=== PATIENT | female | born 1985 | race Caucasian/White ===

== ENCOUNTER 2016-11-18 21:47 | Emergency (ER) | payer OTHER ==
[~2016-11-18] VITALS: Ht 165.1 cm; Wt 59.0 kg
[~2016-11-18 21:47] MED LIST: Abilify PO; BACLOFEN10 MG PO; BACLOFEN20 MG PO; BENADRYL25 MG PO; COLACE100 MG PO; DILAUDID2 MG PO; DURAGESIC100 MCG TD; ELAVIL25 MG PO; FENTANYL1 EAC2 TD; FIORICET,ESG1 TABLET PO; FLEXERIL10 MG PO; FLONASE16 G1 BOTH NARES; FLUTICASONE PRO60 ML TP; FUROSEMIDE20 MG PO; GABAPENTIN400 MG PO; GLUCAGON1 MG IM; HUMALOG100 UNITS/; IBUPROFEN400 MG PO; LANTUS 10100 UNITS/ SC; LANTUS 3 M100 UNITS1 SC; LANTUS100 UNIT/1 SQ; LASIX20 MG PO; LASIX40 MG PO; LIORESAL10 MG PO; LORATADINE10 M2 PO; MELATIN3 MG PO; MOTRIN800 MG PO; MUCUS RELIEF400 MG PO; NOVOLIN N100 UNIT/2 SQ; NOVOLOG PE100 UNITS/ SC; NOVOLOG100 UNIT/1 SQ; NOVOLOG100 UNIT/2 SQ; OXYCODONE HCL20 M1 PO; OXYCONTIN20 MG PO; PRAVASTATIN SOD80 MG PO; Percocet 5/325,Endoc PO; SENNA8.6 MG PO; SIMVASTATIN20 MG PO; SIMVASTATIN40 MG PO; SIMVASTATIN5 MG PO; SUCRETS PO; TIZANIDINE HCL2 MG PO; TRAZODONE HCL100 MG PO; TYLENOL REGULA325 MG PO; Trileptal PO; ULTRAM50 MG PO; Vibramycin, Doryx PO; Xanax PO; ZANAFLEX2 M1 PO; ZOLOFT100 MG PO
[2016-11-19] MEDS ORDERED: PERCOCET 5/31 TABLET PO (00:41)
[2016-11-19] MEDS ORDERED: NAPROSYN500 MG PO (00:41)
[2016-11-19 00:50] VITALS: BP 122/81
== END 2016-11-19 00:51 | disposition home or self-care (01) ==
LOC: EXP 21:47 → EME 21:47 → EXP 11-19 00:51
DX: S90.02XA Contusion of left ankle, initial encounter (principal); W51.XXXA Accidental striking against or bumped into by another person, initial encounter; F17.200 Nicotine dependence, unspecified, uncomplicated
CPT/HCPCS: 73590; 73610; 99281; 99283

== ENCOUNTER 2016-12-18 13:48 | Emergency (ER) | payer OTHER ==
[~2016-12-18] VITALS: Ht 165.1 cm; Wt 52.5 kg
[~2016-12-18 13:48] MED LIST changes: +NAPROSYN500 MG PO; +PERCOCET 5/31 TABLET PO
[2016-12-18 13:54] VITALS: BP 107/93
[2016-12-18] MEDS ORDERED: NOVOLOG PE100 UNITS/ SC (14:01)
[2016-12-18] MEDS ORDERED: TIZANIDINE HCL2 M1 PO (14:02)
[2016-12-18] MEDS ORDERED: TRAMADOL HCL50 MG PO (16:19)
== END 2016-12-18 16:47 | disposition home or self-care (01) ==
LOC: EME 13:48
DX: S93.402A Sprain of unspecified ligament of left ankle, initial encounter (principal); M25.462 Effusion, left knee; I69.352 Hemiplegia and hemiparesis following cerebral infarction affecting left dominant side; W19.XXXA Unspecified fall, initial encounter; Z71.6 Tobacco abuse counseling; E11.9 Type 2 diabetes mellitus without complications; F17.200 Nicotine dependence, unspecified, uncomplicated; Z79.4 Long term (current) use of insulin
CPT/HCPCS: 73564; 73610; 99281; 99284

== ENCOUNTER 2016-12-25 12:30 | Inpatient (IN) | payer OTHER ==
[2016-12-25] VITALS (7 sets, daily range): BP systolic 110–136; BP diastolic 60–77
[~2016-12-25] VITALS: Ht 165.1 cm; Wt 52.9 kg
[~2016-12-25 12:30] MED LIST changes: +TIZANIDINE HCL2 M1 PO; +TRAMADOL HCL50 MG PO
[2016-12-25 13:42] LABS: POINT-OF-CARE METER ID UU13113702
[2016-12-25 13:56] LABS: EOSINOPHIL (%) 0 % (0-5); HEMATOCRIT 52.6 % (36.0-46.0); IMMATURE GRANULOCYTE (%) 0.3 % (0.0-0.7); IMMATURE GRANULOCYTE COUNT 0.2 K/uL; LYMPHOCYTE COUNT 0.6 K/uL (1.0-2.8); MCHC 33.1 G/DL (30.0-36.0); MCV 87.7 FL (83-99); MEAN PLAT.VOLUME 11.4 uM^3 (9.5-12.4); MONOCYTE (%) 9.3 % (3-12); MONOCYTE COUNT 0.6 K/uL (0-0.8); NEUTROPHIL (%) 80.5 % (45-76); NEUTROPHIL COUNT 4.8 K/uL (1.8-6.4); PLATELET COUNT 117 K/uL (156-360); RBC DIS.WIDTH-CV 14.2 % (11.8-14.6); RBC DIS.WIDTH-SD 45.8 % (39-53); WHITE BLOOD COUNT 5.9 K/uL (4.1-10.2)
[2016-12-25 13:57] LABS: CREATININE 0.9 mg/dL (0.6-1.3); POTASSIUM 5.2 mEq/L (3.7-5.4)
[2016-12-25 13:59] LABS: CARBON DIOXIDE (BICARBONATE) 9.1 MEQ/L (20-31)
[2016-12-25 14:08] LABS: CHLORIDE 95 mEq/L (99-109); POTASSIUM 5.4 mEq/L (3.7-5.4); SODIUM 133 mEq/L (136-147)
[2016-12-25 14:11] LABS: ANION GAP 30 MEQ/L (2-14)
[2016-12-25 14:12] LABS: GLUCOSE 470 mg/dL (70-99); TOTAL BILIRUBIN 0.4 mg/dL (0.0-1.0)
[2016-12-25 14:13] LABS: ALKALINE PHOSPHATASE 114 IU/L (3-129)
[2016-12-25 14:14] LABS: GFR ESTIMATE (CALCULATED) 35 mL/min/
[2016-12-25 14:15] LABS: DIRECT BILIRUBIN 0.2 mg/dL (0.0-0.3); UREA NITROGEN (BUN) 17 mg/dL (9-23)
[2016-12-25 14:17] LABS: LIPASE 8 U/L (1.0-51.0)
[2016-12-25 14:21] LABS: TROP-I INTERPRETATION NEGATIVE; TROPONIN-I < 0.01 ng/mL (0.0-0.30)
[2016-12-25 15:39] LABS: POINT-OF-CARE METER ID UU13113702
[2016-12-25 16:24] LABS: ADD MIUA? YES; BILIRUBIN NEGATIVE; BLOOD SMALL; COLOR STRAW ((YELLOW)); GLUCOSE (STRIP) >=500; KETONES 80; LEUKOCYTES NEGATIVE; NITRITE NEGATIVE; PROTEIN (STRIP) 30; SPECIFIC GRAVITY 1.014 (1.000-1.030); UROBILINOGEN 0.2 MG/DL (0.2-1.0)
[2016-12-25 16:30] LABS: POINT-OF-CARE METER ID UU13113702
[2016-12-25 16:33] LABS: BACTERIA NONE SEEN /HPF; EPITHELIAL CELLS RARE /HPF; HYALINE CASTS 0-5 /LPF; MUCUS NONE SEEN /LPF; RED BLOOD CELLS 0-5 /HPF (0-5); UCUL ADDED? NO; WHITE BLOOD CELLS 0-5 /HPF (0-5)
[2016-12-25 16:34] LABS: AMPHETAMINE NEGATIVE (500 ng/mL); BENZODIAZEPINES NEGATIVE (150 ng/mL); COCAINE NEGATIVE (150 ng/mL); METHAMPHETAMINE NEGATIVE (500 ng/mL); OPIATES (MORPHINE) PRESUMPTIVE POSITIVE (100 ng/mL); PHENCYCLIDINE NEGATIVE (25 ng/mL); THC CANNABINOIDS NEGATIVE (50 ng/mL); TRICYCLIC ANTIDEPRESSANTS NEGATIVE (300 ng/mL)
[2016-12-25 16:35] LABS: BARBITURATES NEGATIVE (200 ng/mL); INTERNAL CONTROLS VALID? YES; METHADONE PRESUMPTIVE POSITIVE (200 ng/mL); OXYCODONE PRESUMPTIVE POSITIVE (100 ng/mL); PROPOXYPHENE NEGATIVE (300 ng/mL)
[2016-12-25 16:36] LABS: ADD MEDTOX COMMENT Y
[2016-12-25 17:51] LABS: POINT-OF-CARE METER ID UU13113748
[2016-12-25] MEDS ORDERED: ELAVIL25 MG PO (18:08)
[2016-12-25] MEDS ORDERED: BACLOFEN20 MG PO (18:09)
[2016-12-25] MEDS ORDERED: BACLOFEN10 MG PO (18:09)
[2016-12-25] MEDS ORDERED: DILAUDID2 MG PO (18:10)
[2016-12-25] MEDS ORDERED: DURAGESIC100 MCG TD (18:10)
[2016-12-25] MEDS ORDERED: LANTUS 3 M100 UNITS1 SC (18:11)
[2016-12-25] MEDS ORDERED: LASIX20 MG PO (18:12)
[2016-12-25] MEDS ORDERED: LASIX40 MG PO (18:12)
[2016-12-25] MEDS ORDERED: LANTUS 3 M100 UNITS1 SQ (18:12)
[2016-12-25] MEDS ORDERED: MELATIN3 MG PO (18:13)
[2016-12-25] MEDS ORDERED: NOVOLOG PE100 UNITS/ SC (18:14)
[2016-12-25] MEDS ORDERED: OXYCODONE HCL20 M1 PO (18:14)
[2016-12-25] MEDS ORDERED: SIMVASTATIN40 MG PO (18:15)
[2016-12-25] MEDS ORDERED: TIZANIDINE HCL2 M1 PO ×2 (18:15)
[2016-12-25 18:29] LABS: INFLUENZA A VIRAL ANTIGEN NEGATIVE; INFLUENZA B VIRAL ANTIGEN POSITIVE
[2016-12-25 18:52] LABS: POINT-OF-CARE METER ID UU13113748
[2016-12-25 19:08] LABS: METH RESISTANT S AUREUS PCR NEGATIVE (NEGATIVE)
[2016-12-25 19:24] LABS: PROBE CHECK PASS; SPECIMEN PROCESSING CONTROL PASS
[2016-12-25 19:36] LABS: POINT-OF-CARE METER ID UU13113748
[2016-12-25 19:39] LABS: ANION GAP 20 MEQ/L (2-14); CHLORIDE 109 MEQ/L (99-109); GFR ESTIMATE (CALCULATED) > 59 mL/min/; GLUCOSE 212 mg/dL (70-99); POTASSIUM 4.4 MEQ/L (3.7-5.4); SAMPLE HEMOLYSIS CHECK 0; SAMPLE ICTERIC CHECK 0; SAMPLE LIPEMIA CHECK 0; SODIUM 138 MEQ/L (136-147); UREA NITROGEN (BUN) 15 mg/dL (9-23)
[2016-12-25 20:55] LABS: POINT-OF-CARE METER ID UU13113748
[2016-12-25 21:43] LABS: POINT-OF-CARE METER ID UU13113748
[2016-12-25 22:59] LABS: POINT-OF-CARE METER ID UU13113748
[2016-12-26] VITALS (18 sets, daily range): BP systolic 106–142; BP diastolic 51–84
[2016-12-26 00:04] LABS: POINT-OF-CARE METER ID UU13113748
[2016-12-26 01:29] LABS: POINT-OF-CARE METER ID UU13113748
[2016-12-26 02:22] LABS: POINT-OF-CARE METER ID UU13113748
[2016-12-26 03:04] LABS: POINT-OF-CARE METER ID UU13113748
[2016-12-26 04:21] LABS: POINT-OF-CARE METER ID UU13113748
[2016-12-26 05:06] LABS: POINT-OF-CARE METER ID UU13113748
[2016-12-26 06:12] LABS: POINT-OF-CARE METER ID UU13113748
[2016-12-26 07:16] LABS: POINT-OF-CARE METER ID UU13113731
[2016-12-26 07:20] LABS: Estimated Average Glucose 177 mg/dL (70-123); HEMOGLOBIN A1c (GLYCOHEMOGLOB) 7.8 % HGB (Below 5.7)
[2016-12-26 08:21] LABS: POINT-OF-CARE METER ID UU13113731
[2016-12-26 09:11] LABS: ANION GAP 10 MEQ/L (2-14); CHLORIDE 111 MEQ/L (99-109); POTASSIUM 3.7 MEQ/L (3.7-5.4); SAMPLE HEMOLYSIS CHECK 0; SAMPLE ICTERIC CHECK 0; SAMPLE LIPEMIA CHECK 0; SODIUM 136 MEQ/L (136-147)
[2016-12-26 09:16] LABS: GFR ESTIMATE (CALCULATED) > 59 mL/min/; GLUCOSE 148 mg/dL (70-99); UREA NITROGEN (BUN) 14 mg/dL (9-23)
[2016-12-26 09:17] LABS: POINT-OF-CARE METER ID UU13113731
[2016-12-26 10:54] LABS: POINT-OF-CARE METER ID UU13113731
[2016-12-26 12:15] LABS: POINT-OF-CARE METER ID UU13113731
[2016-12-26 13:01] LABS: POINT-OF-CARE METER ID UU13113731
[2016-12-26 13:54] LABS: POINT-OF-CARE METER ID UU13113731
[2016-12-26 14:27] LABS: ANION GAP 8 MEQ/L (2-14); CHLORIDE 112 MEQ/L (99-109); GFR ESTIMATE (CALCULATED) > 59 mL/min/; GLUCOSE 169 mg/dL (70-99); POTASSIUM 3.8 MEQ/L (3.7-5.4); SAMPLE HEMOLYSIS CHECK 0; SAMPLE ICTERIC CHECK 0; SAMPLE LIPEMIA CHECK 0; SODIUM 136 MEQ/L (136-147); UREA NITROGEN (BUN) 11 mg/dL (9-23)
[2016-12-26 16:58] LABS: POINT-OF-CARE METER ID UU13113731
[2016-12-27 03:00] VITALS: BP 109/63
[2016-12-27 10:05] LABS: HEMATOCRIT 41.6 % (36.0-46.0); MCHC 34.1 G/DL (30.0-36.0); MCV 87.8 FL (83-99); MEAN PLAT.VOLUME 10.5 uM^3 (9.5-12.4); PLATELET COUNT 89 K/uL (156-360); RBC DIS.WIDTH-CV 14.4 % (11.8-14.6); RBC DIS.WIDTH-SD 46.3 % (39-53)
[2016-12-27 10:11] LABS: RED BLOOD COUNT 4.74 M/uL (3.80-5.20)
[2016-12-27 10:37] LABS: ANION GAP 9 MEQ/L (2-14); CHLORIDE 114 MEQ/L (99-109); GFR ESTIMATE (CALCULATED) > 59 mL/min/; POTASSIUM 3.6 MEQ/L (3.7-5.4); SAMPLE HEMOLYSIS CHECK 0; SAMPLE ICTERIC CHECK 0; SAMPLE LIPEMIA CHECK 0; SODIUM 141 MEQ/L (136-147); UREA NITROGEN (BUN) 9 mg/dL (9-23)
[2016-12-27 10:39] LABS: GLUCOSE 42 mg/dL (70-99)
[2016-12-27 15:28] VITALS: BP 125/85
[2016-12-28] VITALS (7 sets, daily range): BP systolic 100–123; BP diastolic 62–77
[2016-12-28 10:05] LABS: HEMATOCRIT 40.7 % (36.0-46.0); MCH 30.3 PG (29.0-34.0); MCHC 34.2 G/DL (30.0-36.0); MCV 88.9 FL (83-99); MEAN PLAT.VOLUME 11.7 uM^3 (9.5-12.4); PLATELET COUNT 93 K/uL (156-360); RBC DIS.WIDTH-CV 14.4 % (11.8-14.6); RBC DIS.WIDTH-SD 46.9 % (39-53); RED BLOOD COUNT 4.58 M/uL (3.80-5.20)
[2016-12-28 10:24] LABS: WHITE BLOOD COUNT 3.7 K/uL (4.1-10.2)
[2016-12-28 10:39] LABS: ANION GAP 6 MEQ/L (2-14); CHLORIDE 112 MEQ/L (99-109); SAMPLE HEMOLYSIS CHECK 1; SAMPLE ICTERIC CHECK 0; SAMPLE LIPEMIA CHECK 0; SODIUM 142 MEQ/L (136-147)
[2016-12-28 10:40] LABS: POTASSIUM 4.5 MEQ/L (3.7-5.4)
[2016-12-28 10:45] LABS: GFR ESTIMATE (CALCULATED) > 59 mL/min/; UREA NITROGEN (BUN) 6 mg/dL (9-23)
[2016-12-28 11:27] LABS: GLUCOSE 180 mg/dL (70-99)
[2016-12-28 11:35] LABS: BASOPHIL COUNT 0.1 K/uL (0-0.1); EOSINOPHIL (%) 0.8 % (0-5); HEMATOLOGY COMMENT 1 SMEAR COMPATIBLE; IMMATURE GRANULOCYTE (%) 0.5 % (0.0-0.7); MONOCYTE (%) 9.4 % (3-12); MONOCYTE COUNT 0.4 K/uL (0-0.8); NEUTROPHIL COUNT 1.2 K/uL (1.8-6.4); PLAT.SUFFICIENCY DECREASED
[2016-12-29 03:05] VITALS: BP 122/78
[2016-12-29 09:12] VITALS: BP 117/76
[2016-12-29 10:32] LABS: ANION GAP 8 MEQ/L (2-14); CHLORIDE 106 MEQ/L (99-109); GFR ESTIMATE (CALCULATED) > 59 mL/min/; SAMPLE HEMOLYSIS CHECK 0; SAMPLE ICTERIC CHECK 0; SAMPLE LIPEMIA CHECK 0; SODIUM 144 MEQ/L (136-147); UREA NITROGEN (BUN) 10 mg/dL (9-23)
[2016-12-29 11:41] LABS: GLUCOSE 98 mg/dL (70-99); POTASSIUM 3.5 MEQ/L (3.7-5.4)
[2016-12-29 12:01] LABS: POINT-OF-CARE METER ID UU14162508
[2016-12-29 12:36] VITALS: BP 100/73
[2016-12-29 15:54] VITALS: BP 114/62
[2016-12-29 18:46] LABS: Estimated Average Glucose 186 mg/dL (70-123); HEMOGLOBIN A1c (GLYCOHEMOGLOB) 8.1 % HGB (Below 5.7)
[2016-12-29 22:15] LABS: POINT-OF-CARE METER ID UU14162508
[2016-12-29 22:59] VITALS: BP 109/56
[2016-12-30 06:44] LABS: POINT-OF-CARE METER ID UU14162508
[2016-12-30 07:14] LABS: HEMATOCRIT 39.4 % (36.0-46.0); MCH 29.5 PG (29.0-34.0); MCHC 33.2 G/DL (30.0-36.0); MCV 88.7 FL (83-99); MEAN PLAT.VOLUME 10.7 uM^3 (9.5-12.4); PLATELET COUNT 119 K/uL (156-360); RBC DIS.WIDTH-CV 13.9 % (11.8-14.6); RBC DIS.WIDTH-SD 45.5 % (39-53); RED BLOOD COUNT 4.44 M/uL (3.80-5.20)
[2016-12-30 07:33] LABS: ANION GAP 7 MEQ/L (2-14); CHLORIDE 105 MEQ/L (99-109); GFR ESTIMATE (CALCULATED) > 59 mL/min/; GLUCOSE 286 mg/dL (70-99); MAGNESIUM 1.7 mg/dl (1.3-2.7); POTASSIUM 4.1 MEQ/L (3.7-5.4); SAMPLE HEMOLYSIS CHECK 0; SAMPLE ICTERIC CHECK 0; SAMPLE LIPEMIA CHECK 0; SODIUM 139 MEQ/L (136-147); UREA NITROGEN (BUN) 15 mg/dL (9-23)
[2016-12-30 08:47] VITALS: BP 105/55
[2016-12-30] MEDS ORDERED: CEFTIN500 MG PO (10:41)
[2016-12-30 11:34] LABS: POINT-OF-CARE METER ID UU14162508
== END 2016-12-30 12:10 | disposition home or self-care (01) | DRG 193 ==
LOC: EME 12:30 → 2EAST 14:54 → 4WEST 14:54 → EDOF 14:54 → 4WEST 16:51 → 2EAST 12-26 20:34
PROVIDERS: Emergency Medicine; Hospitalist; Internal Medicine; Internal Medicine Pulmonary Disease; Surgery
DX: J10.00 Influenza due to other identified influenza virus with unspecified type of pneumonia (principal); E13.10 Other specified diabetes mellitus with ketoacidosis without coma; N17.9 Acute kidney failure, unspecified; I69.354 Hemiplegia and hemiparesis following cerebral infarction affecting left non-dominant side; Z79.4 Long term (current) use of insulin; E87.6 Hypokalemia; E86.1 Hypovolemia; E78.5 Hyperlipidemia, unspecified; F31.9 Bipolar disorder, unspecified; E87.8 Other disorders of electrolyte and fluid balance, not elsewhere classified; K21.9 Gastro-esophageal reflux disease without esophagitis; F17.210 Nicotine dependence, cigarettes, uncomplicated
CPT/HCPCS: 71010; 71020; 80047; 80048; 80048 91; 80076; 81003; 82803; 82948; 83036; 83690; 83735; 84100; 84484; 84999; 85025; 85027; 87502; 87641; C9113; J0696; J1200; J1815; J2405; J7030; J7050

== ENCOUNTER 2017-02-20 14:20 | Emergency (ER) | payer OTHER ==
[~2017-02-20] VITALS: Ht 162.6 cm; Wt 52.4 kg
[~2017-02-20 14:20] MED LIST changes: +CEFTIN500 MG PO; +LANTUS 3 M100 UNITS1 SQ
[2017-02-20] MEDS ORDERED: PERCOCET 5/31 TABLET PO (19:01)
[2017-02-20 19:25] VITALS: BP 114/72
== END 2017-02-20 19:27 | disposition home or self-care (01) ==
LOC: EME 14:20
DX: S72.002A Fracture of unspecified part of neck of left femur, initial encounter for closed fracture (principal); M25.562 Pain in left knee; W19.XXXA Unspecified fall, initial encounter; E78.5 Hyperlipidemia, unspecified; I10 Essential (primary) hypertension; K21.9 Gastro-esophageal reflux disease without esophagitis; Z86.73 Personal history of transient ischemic attack (TIA), and cerebral infarction without residual deficits; F17.200 Nicotine dependence, unspecified, uncomplicated
CPT/HCPCS: 72192; 73502; 73560; 99281; 99284

== ENCOUNTER 2017-06-29 10:08 | Emergency (ER) | payer OTHER ==
[~2017-06-29] VITALS: Ht 162.6 cm; Wt 49.7 kg
[2017-06-29] MEDS ORDERED: ULTRACET1 TABLET PO (12:47)
[2017-06-29] MEDS ORDERED: MOTRIN600 MG PO (12:47)
[2017-06-29 13:40] VITALS: BP 134/92
== END 2017-06-29 13:42 | disposition home or self-care (01) ==
LOC: EXP 10:08 → EME 10:08 → EXP 13:42
DX: S70.02XA Contusion of left hip, initial encounter (principal); S86.912A Strain of unspecified muscle(s) and tendon(s) at lower leg level, left leg, initial encounter; S93.402A Sprain of unspecified ligament of left ankle, initial encounter; S93.602A Unspecified sprain of left foot, initial encounter; W10.9XXA Fall (on) (from) unspecified stairs and steps, initial encounter; Y92.008 Other place in unspecified non-institutional (private) residence as the place of occurrence of the external cause; I69.354 Hemiplegia and hemiparesis following cerebral infarction affecting left non-dominant side; I10 Essential (primary) hypertension; K21.9 Gastro-esophageal reflux disease without esophagitis; E78.5 Hyperlipidemia, unspecified; F17.200 Nicotine dependence, unspecified, uncomplicated
CPT/HCPCS: 73502; 73564; 73610; 73630; 99281; 99284

== ENCOUNTER 2017-08-12 10:05 | Emergency (ER) | payer OTHER ==
[~2017-08-12] VITALS: Ht 165.1 cm; Wt 45.5 kg
[~2017-08-12 10:05] MED LIST changes: +MOTRIN600 MG PO; +ULTRACET1 TABLET PO
[2017-08-12 10:39] LABS: EOSINOPHIL (%) 1.9 % (0-5); EOSINOPHIL COUNT 0.1 K/uL (0-0.3); IMMATURE GRANULOCYTE (%) 0.4 % (0.0-0.7); INSTRUMENT ABS NEUTROPHIL CT 4.4 K/uL; LYMPHOCYTE COUNT 2.3 K/uL (1.0-2.8); MCH 29.5 PG (29.0-34.0); MCV 89.5 FL (83-99); MEAN PLAT.VOLUME 10.5 uM^3 (9.5-12.4); MONOCYTE (%) 7.1 % (3-12); MONOCYTE COUNT 0.5 K/uL (0-0.8); NEUTROPHIL (%) 59.2 % (45-76); NEUTROPHIL COUNT 4.4 K/uL (1.8-6.4); PLATELET COUNT 125 K/uL (156-360); RBC DIS.WIDTH-CV 13.4 % (11.8-14.6); RBC DIS.WIDTH-SD 44.2 % (39-53); RED BLOOD COUNT 4.47 M/uL (3.80-5.20); WHITE BLOOD COUNT 7.5 K/uL (4.1-10.2)
[2017-08-12 10:52] LABS: CHLORIDE 111 mEq/L (99-109); POTASSIUM 3.9 mEq/L (3.7-5.4); SODIUM 143 mEq/L (136-147)
[2017-08-12 10:53] LABS: GLUCOSE 156 mg/dL (70-99)
[2017-08-12 10:55] LABS: ANION GAP 13 MEQ/L (2-14)
[2017-08-12 10:57] LABS: GFR ESTIMATE (CALCULATED) > 59 mL/min/
[2017-08-12 10:58] LABS: UREA NITROGEN (BUN) 22 mg/dL (9-23)
[2017-08-12 11:05] LABS: TROP-I INTERPRETATION NEGATIVE; TROPONIN-I < 0.01 ng/mL (0.0-0.30)
[2017-08-12 11:16] LABS: PROTHROMBIN TIME 11.2 SEC (10.2-12.9)
[2017-08-12 11:18] LABS: PTT 28.9 SEC (25-37)
[2017-08-12 13:15] LABS: TROP-I INTERPRETATION NEGATIVE; TROPONIN-I < 0.01 ng/mL (0.0-0.30)
[2017-08-12 14:53] VITALS: BP 156/82
== END 2017-08-12 14:47 | disposition home or self-care (01) ==
LOC: EME 10:05
PROVIDERS: Emergency Medicine
DX: M79.601 Pain in right arm (principal); M79.1 Myalgia; I25.2 Old myocardial infarction; E78.5 Hyperlipidemia, unspecified; I10 Essential (primary) hypertension; I69.354 Hemiplegia and hemiparesis following cerebral infarction affecting left non-dominant side; Z86.79 Personal history of other diseases of the circulatory system; G89.29 Other chronic pain; F17.200 Nicotine dependence, unspecified, uncomplicated
CPT/HCPCS: 71010; 80048; 84484; 85025; 85610; 85730; 93005; 99281; 99284